=== PATIENT | male | born 1995 | race Asian ===

== ENCOUNTER 2024-09-15 08:11 | Outpatient (AMB) | payer OTHER, SELFPAY ==
--- NOTE | 2024-09-15 08:23 | MHC.OFFVIS ---
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 He states that for the last couple of years or so he has had off and on episodes of dizziness. Lot of times, these happen in the positional sitting when he is trying to get up from a seated position. He states that he has had a lot of family members who have had hypertension issues and hence he cooks only with little or no salt at all. 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 He has been told to have irregular heartbeats for a very long time, since his childhood. However, no clear-cut diagnosis. Apart from the postural dizziness, no other clear-cut symptoms and no activity limitations. [facility] Family History (Updated 09/15/24 @ 08:29 by Adrianna Dobbs CMA) Mother High blood pressure Father No problems noted. 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) Alcohol intake: never Patient Tobacco Use Status: Never used Tobacco Review of Systems Const Denies chills, Denies fatigue, Denies fever(s), Denies frequent falls, Denies weakness, Denies weight gain and Denies weight loss ENT Denies dizziness Card Denies chest pain, Denies leg edema, Denies lightheadedness, Denies palpitations, Denies dyspnea, Denies dyspnea on exertion and Denies orthopnea Resp Denies cough, Denies dyspnea and Denies dyspnea on exertion GI Denies bloating and Denies change in bowel habits Musc Denies muscle weakness, Denies numbness and Denies tingling Neuro Denies dizziness, Denies frequent falls, Denies numbness, Denies tingling and Denies weakness Endo Denies fatigue and Denies palpitations Physical Exam Vital Signs: Last Vital Signs Pulse 101 H 09/15/24 08:27 BP 110/74 09/15/24 08:27 BMI result Body Mass Index 25.3 Const General: comfortable and no acute distress Orientation/consciousness: patient oriented x3 HEENT Other: Unremarkable Head: Yes normal to inspection Neck Neck: Yes normal visual inspection Chest Chest palpation & inspection: normal inspection of the chest Resp Auscultation: clear to auscultation bilaterally Cardio Palpation: normal PMI Heart sounds: S1 normal heart sound present, S2 normal heart sound present, no gallops, no murmurs and no rubs GI Palpation (GI): Soft to palpation Back/Spine/Pelvis Other: unremarkable Skin General skin exam: no rashes or lesions noted Neuro General: patient oriented x3 Extrem General: Yes normal to inspection Psych Mental Status: mental status grossly normal Office Procedures EKG Details: EKG with sinus tachycardia at 01:01/Min; nonspecific ST-T changes; [place] [id number], Complete Assessment & Plan Assessment & Plan (1) Dizziness: Code(s): R42 - Dizziness and giddiness Category: Medical Plan: Suspect postural dizziness which could be related to low salt intake and lowish blood pressures. We discussed about this in detail. Encouraged to liberalize salt and fluid intake and hopefully that will help. We will hold off any further workup. If symptoms persist, consider tilt-table testing. Echocardiogram at [facility]-LVEF of 60%. No wall motion abnormalities. Normal diastolic function. No significant valve issues. (2) Cardiac arrhythmia, unspecified: Code(s): I49.9 - Cardiac arrhythmia, unspecified Category: Medical Plan: Per patient, present since childhood. We discussed about Holter monitoring but he would like to hold off at this time. He states a prior Holter monitor done in the last year was normal although we do not have those results. He would like to readdress it if necessary in the future. Plan Discussion Notes In today's consultation, we discussed the incidences of dizziness in detail, exploring potential causes linked to positional changes and orthostatic hypotension. The symptoms may relate to lower blood pressure levels, particularly during postural adjustments. I recommended increasing water intake and a slight dietary salt increase to stabilize blood pressure, especially when transitioning from sitting to standing or engaging in physical activity. We discussed omitting further invasive testing unless symptoms persist. Regarding his existing cardiac condition, the patient was amenable to considering extended Holter monitoring in the future if necessary. The patient was advised to contact the clinic if symptoms worsen or new concerns arise, and he expressed understanding and agreement with this plan. Patient was informed and verbally consented to the use of an ambient scribe for clinic note documentation during this visit. Patient Instructions: - Drink more water each day to stay hydrated. - Add a little more salt to your diet, but not too much. - Stand up slowly from sitting or lying down. - If dizziness worsens, reach out for a follow-up appointment. - Monitor your blood sugar levels if you feel dizzy. - Contact us if you experience new symptoms or if symptoms get worse. Coding Level of Care Code New Pt Level 4 (47051) Diagnoses Dizziness R42 Cardiac arrhythmia, unspecified I49.9 CPT Codes EKG - CPT: 75502-[id number], Complete ([id number])
[2024-09-15 08:27] VITALS: BP 110/74; PULSE 101; BMI 25.3
== END 2024-09-15 09:15 | disposition home or self-care (01) ==
PROVIDERS: PCP Student in an Organized Health Care Education/Training Program; Visit Provider Internal Medicine
DX: R42 Dizziness and giddiness (principal); I49.9 Cardiac arrhythmia, unspecified
CPT/HCPCS: 93010; 99204

== ENCOUNTER → 2024-09-15 08:11 | Outpatient (BNVA) | payer OTHER, SELFPAY | PROVIDERS: PCP Student in an Organized Health Care Education/Training Program; Visit Provider Internal Medicine | DX: R42 Dizziness and giddiness (principal) | CPT/HCPCS: 93005 ==